=== PATIENT | male | born 1970 | race Caucasian/White ===

== ENCOUNTER 2020-05-29 11:28 | Emergency (ER) | payer OTHER ==
[2020-05-29] MEDS ORDERED: ZOFRAN4 M1 PO (12:27)
[2020-05-29] MEDS ORDERED: HYDROCODON-ACE1 EAC2 PO (12:27)
[2020-05-29 12:47] LABS: BASOPHIL 0.7 % (0-2); EOSINOPHIL 3.1 % (0-5); HCT 47.4 % (42.0-52.0); HGB 16.9 g/dl (13.2-18.0); LYMPHOCYTE 25.5 % (15-48); MCH 31.9 pg (25.0-31.0); MCHC 35.7 g/dL (32.0-36.0); MCV 89.4 fL (78.0-100.0); MONOCYTE 9.7 % (0-12); MPV 10.9 fL (6.0-9.5); NEUTROPHIL 60.6 % (41-80); NRBC 0; PLT 206 K/uL (150-400); RDW 12.4 % (11.5-14.0); WBC 11.3 K/uL (4.0-10.5)
[2020-05-29 12:58] LABS: ALBUMIN 3.7 g/dL (3.4-5.0); BILIRUBIN - TOTAL 0.5 mg/dL (0.2-1.0); BUN/CREAT RATIO (CALC) 19.5 RATIO; CREATININE 1.18 mg/dL (0.67-1.17); GLOBULIN (CALCULATION) 3.7 g/dL; POTASSIUM 3.2 mmol/L (3.5-5.1); TOTAL PROTEIN 7.4 g/dL (6.4-8.2)
[2020-05-29] MEDS ORDERED: VENTOLIN HFA IN18 GM INH (14:32)
== END 2020-05-29 13:53 | disposition home or self-care (01) ==
LOC: FER 11:28
PROVIDERS: Emergency Medicine
DX: F41.9 Anxiety disorder, unspecified (principal); T43.621A Poisoning by amphetamines, accidental (unintentional), initial encounter; R06.02 Shortness of breath; J45.909 Unspecified asthma, uncomplicated; F17.200 Nicotine dependence, unspecified, uncomplicated
CPT/HCPCS: 36415; 71045; 80053; 84484; 85025; 93005; J7030